=== PATIENT | female | born 1980 | race African-American/Black ===

== ENCOUNTER 2021-04-03 12:42 | Emergency (ER) | payer BC ==
[2021-04-03 13:16] VITALS: BP 135/64; PULSE 95; TEMP 98.9; BMI 33.3
[2021-04-03 13:48] LABS: ALBUMIN 3.9 g/dl (3.4-5.0); BILIRUBIN,TOTAL 0.5 mg/dl (0.2-1); CALCIUM 9.3 mg/dl (8.5-10); CREATININE 0.7 mg/dl (0.55-1.3); TOT PROT 7.5 g/dl (6.4-8.2)
[2021-04-03 13:57] LABS: MAGNESIUM 2.1 mg/dL (1.8-2.4); PHOSPHOROUS 3.6 mg/dl (2.5-4.9)
[2021-04-03 15:27] LABS: HEMATOCRIT 30.4 % (32.4-45.2); MCH 24.9 pg (25.7-33.7); MCHC 32.8 g/dl (32.0-36.0); MEAN CELL VOLUME 76.1 fl (80-96); PLATELET COUNT 521 10^3/uL (134-434); RBC 3.99 M/mm3 (3.60-5.2); RDW 16.2 % (11.6-15.6); WHITE BLOOD COUNT 7.4 K/mm3 (4.0-10.0)
== END 2021-04-03 17:05 | disposition home or self-care (01) ==
LOC: FER 12:42
DX: R07.9 Chest pain, unspecified (principal)
CPT/HCPCS: 36415; 71046-TC-FY; 80053; 83690; 83735; 84100; 84443; 84484; 85027; 93005; 99285-25

== ENCOUNTER 2023-03-16 23:07 | Emergency (ER) | payer BC ==
[2023-03-16] MEDS ORDERED: SODIUM CHLORIDE 0.9% 500 ML INFUS.BAG IV ONE (23:39)
[2023-03-16] MEDS ORDERED: ACETAMINOPHEN 1000 MG/100 ML BAG IVPB ONE (23:40)
[2023-03-16] MEDS ORDERED: FAMOTIDINE 20 MG/50 ML IVPB 20 MG/50 ML MG IVPB ONE ×2 (23:40→23:43)
[2023-03-16] MEDS ORDERED: ACETAMINOPHEN INJECTION 100 ML IVPB ONE (23:43)
[2023-03-17 00:38] VITALS: BP 137/78; PULSE 95; RESP 16; TEMP 98.1; BMI 33.3
[2023-03-17 00:38] LABS: BASO % 0.6 % (0-2.0); EOS % 1.1 % (0-4.5); HEMATOCRIT 35.4 % (32.4-45.2); HEMOGLOBIN 11.6 GM/dL (10.7-15.3); LYMPH % 19.8 % (8-40); MCH 25.9 pg (25.7-33.7); MCHC 32.7 g/dl (32.0-36.0); MEAN CELL VOLUME 79.3 fl (80-96); MEAN PLT VOLUME 7.1 fl (7.5-11.1); MONO % 9.7 % (3.8-10.2); NEUT % 68.8 % (42.8-82.8); PLATELET COUNT 544 10^3/uL (134-434); RBC 4.47 M/mm3 (3.60-5.2); RDW 17.3 % (11.6-15.6); WHITE BLOOD COUNT 8.8 K/mm3 (4.0-10.0)
[2023-03-17 00:48] LABS: POTASSIUM 4.2 mmol/L (3.5-5.1)
[2023-03-17 00:50] LABS: BLOOD UREA NITROGEN 9.4 mg/dL (7-18); CALCIUM 9.7 mg/dL (8.5-10.1)
[2023-03-17 00:51] LABS: ALBUMIN 3.8 g/dl (3.4-5.0)
[2023-03-17 00:54] LABS: CREATININE 0.8 mg/dL (0.55-1.3)
[2023-03-17 00:55] LABS: BILIRUBIN,TOTAL 0.3 mg/dL (0.2-1); TOT PROT 7.7 g/dl (6.4-8.2)
== END 2023-03-17 01:57 | disposition home or self-care (01) ==
LOC: FER 23:07
PROC: 3E033GC Introduction of Other Therapeutic Substance into Peripheral Vein, Percutaneous Approach (ICD-10-PCS; principal; 2023-03-16)
PROC: 3E033NZ Introduction of Analgesics, Hypnotics, Sedatives into Peripheral Vein, Percutaneous Approach (ICD-10-PCS; 2023-03-16)
DX: R19.7 Diarrhea, unspecified (principal); R10.13 Epigastric pain; A08.4 Viral intestinal infection, unspecified; Z20.822 Contact with and (suspected) exposure to COVID-19
CPT/HCPCS: 0241U-QW; 36415; 80053; 85025; 99284-25

== ENCOUNTER 2023-05-01 20:01 | Emergency (ER) | payer BC ==
[2023-05-01 20:12] VITALS: BP 130/88; PULSE 79; RESP 20; TEMP 98.7; BMI 31.8
== END 2023-05-01 21:27 | disposition home or self-care (01) ==
LOC: FER 20:01
DX: K92.1 Melena (principal); K64.9 Unspecified hemorrhoids
CPT/HCPCS: 99282-25